=== PATIENT | female | born 1995 | race African-American/Black ===

== ENCOUNTER 2016-08-18 15:08 | Emergency (ER) | payer OTHER ==
[2016-08-18 16:39] LABS: Urine Bacteria Absent (Absent); Urine Bilirubin Negative (Negative); Urine Glucose Negative (Negative); Urine Nitrite Negative (Negative)
[2016-08-18 19:02] LABS: Hematocrit 40 % (35-47); Hemoglobin 13.3 g/dl (12.0-16.0); Mean Corpuscular HGB Conc 33 g/dl (31-36); Mean Corpuscular Hemoglobin 30 pg (27-31); Mean Corpuscular Volume 91 fL (80-97); Mean Platelet Volume 10 um3 (7.4-10.4); Red Blood Count 4.42 10^6/ul (4.0-5.4); Red Cell Distribution Width 13 % (10.5-15); White Blood Count 8.4 10^3/ul (3.5-10.8)
[2016-08-18 19:26] LABS: ALT 10 U/L (7-52); AST 15 U/L (13-39); Albumin 4.4 g/dL (3.2-5.2); Alkaline Phosphatase 61 U/L (34-104); Anion Gap 7 mmol/L (2-11); BUN/Creatinine Ratio 12.2 (8-20); Blood Urea Nitrogen 11 mg/dL (6-24); CO2 Carbon Dioxide 26 mmol/L (22-32); Calcium 9.8 mg/dL (8.6-10.3); Chloride 100 mmol/L (101-111); EGFR African American 103.7 (>60); EGFR Non-African American 80.7 (>60); Globulin 3.9 g/dL (2-4); Glucose 112 mg/dL (70-100); Sodium 133 mmol/L (133-145); Total Protein 8.3 g/dL (6.4-8.9)
[2016-08-18 19:54] LABS: TSH (Thyroid Stimulating Horm) 1.02 mcIU/mL (0.34-5.60)
--- NOTE | 2016-08-18 20:08 | ED ---
Dizziness - HPI Summary HPI Summary: 20F presents with 5 mins dizziness today. She states that her symptoms resolved. She denies any n/v/d, abdominal pain, chest pain, or SOB. She has never had this before. She states the dizziness has never occurred before. She denies any pain or swelling in her calf muscles. She denies any fever. She states the feeling is a vertigo feeling. She denies any headache, ear fullness, or sinus pressure. - History Of Current Complaint Chief Complaint: EDDizziness Stated Complaint: DIZZY Time Seen by Provider: 08/18/16 17:58 - Allergies/Home Medications Allergies/Adverse Reactions: Allergies Allergy/AdvReac Type Severity Reaction Status Date / Time No Known Allergies Allergy Verified 08/18/16 15:12 Home Medications: Home Medications Fluticasone NASAL SPRAY 50MCG* [Flonase NASAL SPRAY 50MCG*] 2 spray BOTH NARES DAILY 08/18/16 [History Confirmed 08/18/16] Loratadine & Pseudoephedrine [Claritin-D 24 Hour 10-240 mg] 1 tab PO DAILY 08/18 [History Confirmed 08/18/16] PMH/Surg Hx/FS Hx/Imm Hx Endocrine/Hematology History: Denies: Hx Anticoagulant Therapy Cardiovascular History: Denies: Hx Hypertension Infectious Disease History: Denies: Traveled Outside the [place] in Last 30 Days - Family History Known Family History: Negative: Cardiac Disease - Social History Alcohol Use: None Substance Use Type: Reports: None Smoking Status (MU): Never Smoked Tobacco Review of Systems Negative: Fever Negative: Chest Pain Negative: Shortness Of Breath Neurological: Other - dizziness All Other Systems Reviewed And Are Negative: Yes Physical Exam Triage Information Reviewed: Yes Vital Signs On Initial Exam: Initial Vitals Temp Pulse Resp BP Pulse Ox 98.0 F 85 17 118/79 97 08/18/16 15:09 08/18/16 15:09 08/18/16 15:09 08/18/16 15:08/18/16 15:09 Vital Signs Reviewed: Yes Appearance: Positive: Well-Appearing Skin: Positive: Warm, Cold Head/Face: Positive: Normal Head/Face Inspection Eyes: Positive: Normal, Conjunctiva Clear ENT: Positive: Normal ENT inspection, Pharynx normal, TMs normal Respiratory/Lung Sounds: Positive: Clear to Auscultation, Breath Sounds Present Cardiovascular: Positive: Normal, RRR Neurological: Positive: Sensory/Motor Intact, Alert, Oriented to Person Place, Time, CN Intact II-III - [place] Coma Scale Coma Scale Total: 15 Diagnostics - Vital Signs Vital Signs Temp Pulse Resp BP Pulse Ox 08/18/16 18:35 98.3 F 73 17 110/69 99 08/18/16 17:02 98.3 F 73 17 110/69 99 08/18/16 15:09 98.0 F 85 17 118/79 97 - Laboratory Lab Results: Lab Results 08/18/16 08/18/16 08/18/16 Range/Units 16:14 18:54 18:54 WBC 8.4 (3.5-10.8) 10^3/ul RBC 4.42 (4.0-5.4) 10^6/ul Hgb 13.3 (12.0-16.0) g/dl Hct 40 (35-47) % MCV 91 (80-97) fL MCH 30 (27-31) pg MCHC 33 (31-36) g/dl RDW 13 (10.5-15) % Plt Count 205 (150-450) 10^3/ul MPV 10 (7.4-10.4) um3 Neut % (Auto) 64.6 (38-83) % Lymph % (Auto) 23.5 L (25-47) % [place] % (Auto) 7.3 (1-9) % Eos % (Auto) 3.9 (0-6) % Baso % (Auto) 0.7 (0-2) % Absolute Neuts (auto) 5.4 (1.5-7.7) 10^3/ul Absolute Lymphs (auto) 2.0 (1.0-4.8) 10^3/ul Absolute Monos (auto) 0.6 (0-0.8) 10^3/ul Absolute Eos (auto) 0.3 (0-0.6) 10^3/ul Absolute Basos (auto) 0.1 (0-0.2) 10^3/ul Absolute Nucleated RBC 0.01 10^3/ul Nucleated RBC % 0.1 Sodium 133 (133-145) mmol/L Potassium 4.0 (3.5-5.0) mmol/L Chloride 100 L (101-111) mmol/L Carbon Dioxide 26 (22-32) mmol/L Anion Gap 7 (2-11) mmol/L BUN 11 (6-24) mg/dL Creatinine 0.90 (0.51-0.95) mg/dL Est GFR ( Amer) 103.7 (>60) Est GFR (Non-Af Amer) 80.7 (>60) BUN/Creatinine Ratio 12.2 (8-20) Glucose 112 H (70-100) mg/dL Calcium 9.8 (8.6-10.3) mg/dL Magnesium 2.0 (1.9-2.7) mg/dL Total Bilirubin 0.40 (0.2-1.0) mg/dL AST 15 (13-39) U/L ALT 10 (7-52) U/L Alkaline Phosphatase 61 (34-104) U/L Troponin I 0.00 (<0.04) ng/mL Total Protein 8.3 (6.4-8.9) g/dL Albumin 4.4 (3.2-5.2) g/dL Globulin 3.9 (2-4) g/dL Albumin/Globulin Ratio 1.1 (1-3) TSH 1.02 (0.34-5.60) mcIU/mL Beta HCG, Quant < 0.60 mIU/mL Urine Color Yellow Urine Appearance Cloudy Urine pH 6.0 (5-9) Ur Specific [place] 1.012 (1.010-1.030) Urine Protein Negative (Negative) Urine Ketones Negative (Negative) Urine Blood Negative (Negative) Urine Nitrate Negative (Negative) Urine Bilirubin Negative (Negative) Urine Urobilinogen Negative (Negative) Ur Leukocyte Esterase 1+ H (Negative) Urine WBC (Auto) Trace(0-5/hpf) (Absent) Urine RBC (Auto) Trace(0-2/hpf) (Absent) Ur Squamous Epith Cells Present H (Absent) Urine Bacteria Absent (Absent) Urine Glucose Negative (Negative) Result Diagrams: 08/18/16 18:54 08/18/16 18:54 Lab Statement: Any lab studies that have been ordered have been reviewed, and results considered in the medical decision making process. - EKG No standard instances Cardiac Rate: NL EKG Rhythm: Sinus Rhythm ST Segment: Normal Dizzy Course/Dx - Course Course Of Treatment: 20F presents with vertigo for 5 mins that resolved. denies any fever, chest pain, or SOB. never had this happen before. normal neuro exam. EKG normal. labs normal. explained results to patient that do not have a cause for vertigo. patient understands and agrees with plan - Diagnoses Differential Diagnosis/HQI/PQRI: Hypovolemia, Metabolic Abnormality, Myocardial Infarction Provider Diagnoses: Dizziness Discharge - Discharge Plan Condition: Good Disposition: HOME Patient Education Materials: Dizziness (ED) Referrals: [facility] [Primary Care Provider] - Additional Instructions: Drink plenty of fluids Try OTC meclizine if dizziness returns and persists Return to ED if develop any new or worsening symptoms
[2016-08-18 20:28] VITALS: BP 112/73
== END 2016-08-18 20:26 | disposition home or self-care (01) ==
LOC: ED 15:08
DX: R42 Dizziness and giddiness (principal)
CPT/HCPCS: 36415; 80053; 81003; 81015; 83735; 84443; 84484; 84702; 85025; 87086; 93005; 99282